=== PATIENT | female | born 1990 | race American Indian/Alaskan Native ===

== ENCOUNTER 2017-05-09 19:04 | Emergency (ER) | payer SELFPAY ==
[2017-05-09] MEDS ORDERED: TYLENOL PO ONE (19:38)
[2017-05-09 19:49] LABS: Basophils % (Auto) 0.5 % (0.0-1.8); Eosinophils % (Auto) 0.4 % (0.0-4.3); Hematocrit 43.8 % (30.3-42.9); Hemoglobin 15.1 gm/dl (10.1-14.3); Lymphocytes # (Auto) 1.5 K/mm3 (1.2-5.4); Lymphocytes % (Auto) 33.2 % (13.4-35.0); Mean Corpuscular HGB Conc 34 % (30-34); Mean Corpuscular Hemoglobin 32 pg (28-32); Mean Corpuscular Volume 92 fl (79-97); Monocytes # (Auto) 0.5 K/mm3 (0.0-0.8); Monocytes % (Auto) 11.7 % (0.0-7.3); Platelet Count 298 K/mm3 (140-440); Red Blood Count 4.77 M/mm3 (3.65-5.03); Red Cell Distribution Width 14.2 % (13.2-15.2)
--- NOTE | 2017-05-09 21:33 | Ultrasound Report ---
FINAL REPORT PROCEDURE: US OB < = 14 WEEKS FETUS TECHNIQUE: Real-time transabdominal sonography of the uterus, placenta, amniotic fluid, adnexa, and fetus was performed with image documentation. Measurements were obtained to determine age/size. M-mode Doppler was used to document heartbeat. CPT 71650 HISTORY: vaginal bleeding COMPARISON: No prior studies are available for comparison. FINDINGS: Uterus measures 9.4 x 4 x 5.8 centimeters. The endometrium is thickened at 15.3 millimeters. There is no endometrial fluid. There is no intrauterine gestational sac. The right ovary measures 2.7 x 1.5 x 1.5 centimeters. There is no mass or evidence of torsion. The left ovary is not seen. There is minimal nonspecific free pelvic fluid. IMPRESSION: There is no visualized intrauterine or ectopic . There is minimal nonspecific free pelvic fluid. The left ovary is not seen.
--- NOTE | 2017-05-09 21:34 | Ultrasound Report ---
FINAL REPORT PROCEDURE: US OB TRANSVAGINAL TECHNIQUE: Real-time transvaginal sonography of the uterus, placenta, amniotic fluid, adnexa, and fetus was performed with image documentation. Measurements were obtained to determine age/size. M-mode Doppler was used to document heartbeat. HISTORY: vaginal bleeding COMPARISON: No prior studies are available for comparison. FINDINGS: Uterus measures 9.4 x 4 x 5.8 centimeters. The endometrium is thickened at 15.3 millimeters. There is no endometrial fluid. There is no intrauterine gestational sac. The right ovary measures 2.7 x 1.5 x 1.5 centimeters. There is no mass or evidence of torsion. The left ovary is not seen. There is minimal nonspecific free pelvic fluid. IMPRESSION: There is no visualized intrauterine or ectopic . There is minimal nonspecific free pelvic fluid. The left ovary is not seen.
[2017-05-10 00:03] LABS: Bilirubin,Urine NEG (Negative); Blood,Urine MOD (Negative); Color,Urine Yellow (Yellow); Mucus,Urine FEW /HPF; Protein,Urine <15 mg/dL mg/dL (Negative); Urobilinogen,Urine < 2.0 mg/dL (<2.0)
[2017-05-10] MEDS ORDERED: NORCO 7.5/325 PO ONE (01:48)
--- NOTE | 2017-05-10 01:53 | Emergency Department Report ---
ED Female HPI - General Chief complaint: Vaginal Bleeding Stated complaint: HAD D&C/ABDOMINAL PAIN Time Seen by Provider: 05/10/17 01:43 Source: patient Mode of arrival: Ambulatory Limitations: No Limitations - History of Present Illness Initial comments: Patient is a 26-year-old female who is presenting with pelvic pain this. Patient had a spontaneous 4 weeks gestation approximately 2-3 days ago seen in clinic. Patient states that she's having some spotting can still has some lower abdominal cramping. Patient denies any fever or dysuria nausea vomiting at this time. Location: suprapubic Severity: moderate Severity scale (0 -10): 6 Quality: cramping Consistency: constant - Related Data Previous Rx's Medication Instructions Recorded Last Taken Type HYDROcodone/APAP 7.5-325 [[place] 1 each PO Q6HR PRN #10 tablet 05/10/17 Unknown Rx 7.5-325 mg TAB] Ibuprofen [Motrin] 600 mg PO Q8H PRN #20 tablet 05/10/17 Unknown Rx Methylergonovine [Methergine] 0.2 mg PO Q8HR 3 Days tablet 05/10/17 Unknown Rx Allergies Allergy/AdvReac Type Severity Reaction Status Date / Time No Known Allergies Allergy Unverified 05/09/17 19:33 ED Review of Systems ROS: Stated complaint: HAD D&C/ABDOMINAL PAIN Other details as noted in HPI Comment: All other systems reviewed and negative ED Past Medical Hx - Past Medical History Additional medical history: Heart Palpitations - Surgical History Past Surgical History?: No - Social History Smoking Status: Current Every Day Smoker Substance Use Type: None - Medications Home Medications: Home Medications Medication Instructions Recorded Confirmed Last Taken Type HYDROcodone/APAP 7.5-325 [[place] 1 each PO Q6HR PRN #10 tablet 05/10/17 Unknown Rx 7.5-325 mg TAB] Ibuprofen [Motrin] 600 mg PO Q8H PRN #20 tablet 05/10/17 Unknown Rx Methylergonovine [Methergine] 0.2 mg PO Q8HR 3 Days tablet 05/10/17 Unknown Rx ED Physical Exam - General Limitations: No Limitations General appearance: alert, in no apparent distress - Head Head exam: Present: atraumatic, normocephalic - Eye Eye exam: Present: normal appearance - ENT ENT exam: Present: mucous membranes moist - Neck Neck exam: Present: normal inspection - Respiratory Respiratory exam: Present: normal lung sounds bilaterally. Absent: respiratory distress, wheezes, rales - Cardiovascular Cardiovascular Exam: Present: regular rate, normal rhythm. Absent: systolic murmur, diastolic murmur, rubs, gallop - GI/Abdominal GI/Abdominal exam: Present: soft, tenderness (mild suprapubic), normal bowel sounds - Extremities Exam Extremities exam: Present: normal inspection - Back Exam Back exam: Present: normal inspection - Neurological Exam Neurological exam: Present: alert, oriented X3 - Psychiatric Psychiatric exam: Present: normal affect, normal mood - Skin Skin exam: Present: warm, dry, intact, normal color. Absent: rash ED Course Vital Signs 05/09/17 05/10/17 19:23 01:47 Temperature 99 F Pulse Rate 105 H Respiratory 16 18 Rate Blood Pressure 145/84 O2 Sat by Pulse 98 Oximetry ED Medical Decision Making - Lab Data Result diagrams: 05/09/17 19:39 Lab Results 05/09/17 05/09/17 05/09/17 Range/Units 19:39 19:39 19:39 WBC 4.7 (4.5-11.0) K/mm3 RBC 4.77 (3.65-5.03) M/mm3 Hgb 15.1 H (10.1-14.3) gm/dl Hct 43.8 H (30.3-42.9) % MCV 92 (79-97) fl MCH 32 (28-32) pg MCHC 34 (30-34) % RDW 14.2 (13.2-15.2) % Plt Count 298 (140-440) K/mm3 Lymph % (Auto) 33.2 (13.4-35.0) % [place] % (Auto) 11.7 H (0.0-7.3) % Eos % (Auto) 0.4 (0.0-4.3) % Baso % (Auto) 0.5 (0.0-1.8) % Lymph # 1.5 (1.2-5.4) K/mm3 Barton # 0.5 (0.0-0.8) K/mm3 Eos # 0.0 (0.0-0.4) K/mm3 Baso # 0.0 (0.0-0.1) K/mm3 Seg Neutrophils % 54.2 (40.0-70.0) % Seg Neutrophils # 2.5 (1.8-7.7) K/mm3 HCG, Quant < 2 (0-4) mIU/mL Urine Color (Yellow) Urine Turbidity (Clear) Urine pH (5.0-7.0) Ur Specific [place] (1.003-1.030) Urine Protein (Negative) mg/dL Urine Glucose (UA) (Negative) mg/dL Urine Ketones (Negative) mg/dL Urine Blood (Negative) Urine Nitrite (Negative) Urine Bilirubin (Negative) Urine Urobilinogen (<2.0) mg/dL Ur Leukocyte Esterase (Negative) Urine WBC (Auto) (0.0-6.0) /HPF Urine RBC (Auto) (0.0-6.0) /HPF U Epithel Cells (Auto) (0-13.0) /HPF Urine Mucus /HPF Blood Type A POSITIVE Antibody Screen Negative 05/09/17 Range/Units Unknown WBC (4.5-11.0) K/mm3 RBC (3.65-5.03) M/mm3 Hgb (10.1-14.3) gm/dl Hct (30.3-42.9) % MCV (79-97) fl MCH (28-32) pg MCHC (30-34) % RDW (13.2-15.2) % Plt Count (140-440) K/mm3 Lymph % (Auto) (13.4-35.0) % [place] % (Auto) (0.0-7.3) % Eos % (Auto) (0.0-4.3) % Baso % (Auto) (0.0-1.8) % Lymph # (1.2-5.4) K/mm3 [place] # (0.0-0.8) K/mm3 Eos # (0.0-0.4) K/mm3 Baso # (0.0-0.1) K/mm3 Seg Neutrophils % (40.0-70.0) % Seg Neutrophils # (1.8-7.7) K/mm3 HCG, Quant (0-4) mIU/mL Urine Color Yellow (Yellow) Urine Turbidity Clear (Clear) Urine pH 6.0 (5.0-7.0) Ur Specific [place] 1.014 (1.003-1.030) Urine Protein <15 mg/dl (Negative) mg/dL Urine Glucose (UA) Neg (Negative) mg/dL Urine Ketones 20 (Negative) mg/dL Urine Blood Mod (Negative) Urine Nitrite Neg (Negative) Urine Bilirubin Neg (Negative) Urine Urobilinogen < 2.0 (<2.0) mg/dL Ur Leukocyte Esterase Neg (Negative) Urine WBC (Auto) 2.0 (0.0-6.0) /HPF Urine RBC (Auto) 3.0 (0.0-6.0) /HPF U Epithel Cells (Auto) 1.0 (0-13.0) /HPF Urine Mucus Few /HPF Blood Type Antibody Screen - Radiology Data Radiology results: report reviewed There is no intrauterine seen. This correlates to be negative quadrant - Medical Decision Making Patient be discharged home with follow-up with [facility]. Patient's hemoglobin is stable and does not indicate that the patient is bleeding to the point where she is not compensating. His blood pressures within normal limits. She will be discharged home. Critical care attestation.: If time is entered above; I have spent that time in minutes in the direct care of this critically ill patient, excluding procedure time. ED Disposition Clinical Impression: Missed Disposition: DC-01 TO HOME OR SELFCARE Is pt being admited?: No Does the pt Need Aspirin: No Condition: Stable Instructions: Spontaneous Miscarriage (ED) Prescriptions: HYDROcodone/APAP 7.5-325 [[place] 7.5-325 mg TAB] 1 each PO Q6HR PRN #10 tablet PRN Reason: Pain Ibuprofen [Motrin] 600 mg PO Q8H PRN #20 tablet PRN Reason: Pain Methylergonovine [Methergine] 0.2 mg PO Q8HR 3 Days tablet Referrals: PRIMARY CARE, [Primary Care Provider] - 3-5 Days Forms: Work/School Release Form(ED)
[2017-05-10 02:10] VITALS: BP 129/87
== END 2017-05-10 02:08 | disposition home or self-care (01) ==
LOC: ED 19:04
DX: O02.1 Missed abortion (principal); O99.331 Smoking (tobacco) complicating pregnancy, first trimester; Z3A.14 14 weeks gestation of pregnancy
CPT/HCPCS: 36415; 76801; 76817; 81001; 84702; 85025; 86850; 86900; 86901; 99284

== ENCOUNTER 2017-07-22 00:55 | Emergency (ER) | payer SELFPAY ==
[2017-07-22 04:35] LABS: Hematocrit 44.2 % (30.3-42.9); Hemoglobin 15.6 gm/dl (10.1-14.3); Mean Corpuscular HGB Conc 35 % (30-34); Mean Corpuscular Hemoglobin 32 pg (28-32); Mean Corpuscular Volume 91 fl (79-97); Platelet Count 358 K/mm3 (140-440); Red Blood Count 4.88 M/mm3 (3.65-5.03); Red Cell Distribution Width 13.5 % (13.2-15.2)
[2017-07-22 04:49] LABS: BUN/Creatinine Ratio 13; Blood Urea Nitrogen 8 mg/dL (7-17); Calcium 9.5 mg/dL (8.4-10.2); Hemolysis Index 10
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
[2017-07-22 09:16] VITALS: BP 114/73
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
--- NOTE | 2017-07-22 10:47 | XRay Report ---
LEFT ANKLE, 3 views: History: left ankle pain. Bone mineralization is normal. No acute osseous abnormality or joint pathology is identified. The soft tissues are unremarkable. IMPRESSION: Normal study.
[2017-07-22] MEDS ORDERED: NORCO 5/325 PO ONE (10:58)
[2017-07-22] MEDS ORDERED: TORADOL IM ONE (10:59)
== END 2017-07-22 11:30 | disposition home or self-care (01) ==
LOC: ED 00:55
DX: R68.84 Jaw pain (principal); M25.572 Pain in left ankle and joints of left foot; R51 Headache; F17.200 Nicotine dependence, unspecified, uncomplicated; Y04.2XXA Assault by strike against or bumped into by another person, initial encounter; Y93.89 Activity, other specified; Y99.8 Other external cause status; Y92.038 Other place in apartment as the place of occurrence of the external cause
CPT/HCPCS: 36415; 70450; 70486; 73610; 80048; 84703; 85027; 96372; 99285; J1885